=== PATIENT | male | born 2005 | race Caucasian/White ===

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

== ENCOUNTER 2024-03-12 11:11 | Inpatient (IN) | payer OTHER ==
[~2024-03-12] VITALS: Ht 175.3 cm; Wt 54.7 kg
[2024-03-12] VITALS (19 sets, daily range): BP systolic 112–137; BP diastolic 40–74; PULSE 74–89; RESP 16–28; TEMP 98–98.6; O2SAT 94–99
[~2024-03-12 11:11] MED LIST: ONDA-243 PO
[2024-03-12 11:32] LABS: BILIRUBIN,URINE MODERATE (Neg); CLARITY,URINE CLEAR (Clear); GLUCOSE, URINE NEGATIVE (Neg); KETONES,URINE 40 mg/dl (Neg); LEUKOCYTE ESTERASE ,URINE NEGATIVE (Neg); NITRITES, URINE NEGATIVE (Neg); OCCULT BLOOD,URINE NEGATIVE (Neg); PH,URINE 6.5 (4.8-8.0); PROTEIN,URINE 30 mg/dl (Neg)
[2024-03-12 11:35] LABS: UA COLLECTION TYPE CLN CATCH MIDSTREAM
[2024-03-12 11:36] LABS: COLOR,URINE DARK YELLOW (Yellow)
[2024-03-12 11:46] LABS: BACTERIA,URINE FEW /HPF (Neg); FINE GRANULAR CAST 0-3 /LPF (NEGATIVE); MUCUS STRANDS MANY /LPF (Neg); RBC,URINE 0-2 /HPF (0-2); SQUAMOUS EPITHELIAL CELL,UR NONE SEEN /LPF (FEW); WBC,URINE 0-4 /HPF (0-4)
[2024-03-12 11:55] LABS: BASOPHILS % (AUTO) 0.2 % (0-1); EOSINOPHILS % (AUTO) 0.1 % (0-6); HEMOGLOBIN 16.4 g/dl (14.0-17.9); LYMPHOCYTES % (AUTO) 6.3 % (21-51); MEAN CORPUSCULAR HEMOGLOBIN 31.6 PG (27.0-31.0); MEAN CORPUSCULAR HGB CONC 34.3 g/dL (33.0-36.5); MEAN CORPUSCULAR VOLUME 92.1 FL (78-98); MEAN PLATELET VOLUME 8.1 FL (7.4-10.4); MONOCYTES # (AUTO) 1.1 X10'3 (0-0.9); NEUTROPHILS # (AUTO) 13.1 X10'3 (1.8-7.7); NEUTROPHILS % (AUTO) 86.4 % (42-75); PLATELET COUNT 220 X10'3 (140-440); RED BLOOD COUNT 5.21 X10'6 (4.70-6.10); WHITE BLOOD COUNT 15.1 X10'3 (4.5-11.0)
[2024-03-12 12:13] LABS: ALANINE AMINOTRANSFERASE 19 U/L (12-78); ALBUMIN 4.5 G/DL (3.4-5.0); ALBUMIN/GLOBULIN RATIO 1.3 (1.1-1.5); ALKALINE PHOSPHATASE 120 IU/L (20-180); ANION GAP 9 (8-16); ASPARTATE AMINO TRANSFERASE 20 U/L (10-37); BILIRUBIN,TOTAL 0.9 MG/DL (0.1-1.0); BLOOD UREA NITROGEN 11 MG/DL (7-18); BUN/CREATININE RATIO 11.5 (10.0-20.0); CALCIUM 9.5 MG/DL (8.5-10.1); CHLORIDE 101 MMOL/L (99-107); CREATININE 0.96 MG/DL (0.60-1.10); GLUCOSE 107 MG/DL (70-104); LIPASE 22 U/L (16-77); POTASSIUM 4.2 MMOL/L (3.5-5.1); SODIUM 137 MMOL/L (135-145); TOTAL CARBON DIOXIDE 27.2 MMOL/L (24-32); TOTAL PROTEIN 8.1 G/DL (6.4-8.2); eCRCL 95 ML/MIN; eGFR > 90 ML/MIN
[2024-03-12] MEDS: normal saline 1000ML IV soln IVB ONE (12:35)
[2024-03-12] MEDS: diphenhydrAMINE 50 mg/ml inj IV ONE (12:36)
[2024-03-12] MEDS: proCHLORperazine 10 MG/2 ml inj IV ONE (12:36)
[2024-03-12] MEDS: morphine 4 MG/ML inj SYRINge IV ONE (12:41)
[2024-03-12] MEDS: normal saline 1000ml 1,000 ML IV ONE (13:16)
[2024-03-12] MEDS ORDERED: morphine 4 MG/ML inj SYRINge IV ONE (13:45)
[2024-03-12] MEDS ORDERED: iohexol 300mg/ml 100ml inj. ONE (13:49)
[2024-03-12] MEDS: ondansetron/PF 4mg/2ml inj IV ONE (14:11)
[2024-03-12] MEDS: HYDROmorphone inj. 0.5 MG/0.5 ML DISP.SYRIN IV ONE (14:12)
[2024-03-12] MEDS: piperacillin/tazo 4.5gm/100ml 100 ML IV STA (15:08)
[2024-03-12] MEDS ORDERED: meperidine/PF 25mg/ml syringe IV PRN ×2 (15:10)
[2024-03-12] MEDS ORDERED: morphine 4 MG/ML inj SYRINge IV PRN (15:10)
[2024-03-12] MEDS ORDERED: ondansetron/PF 4mg/2ml inj IV PRN ×2 (15:10→15:55)
[2024-03-12] MEDS ORDERED: morphine 2 MG/ML inj. syringe IV PRN (15:10)
[2024-03-12] MEDS ORDERED: labetalol 20mg/4ml (5mg/ml) syringe IV PRN (15:10)
[2024-03-12] MEDS ORDERED: propofol inj 20 ML IV ONE (15:14)
[2024-03-12] MEDS ORDERED: dexamethasone sod phosphate 4mg/ml inj. ONE (15:14)
[2024-03-12] MEDS ORDERED: ondansetron/PF 4mg/2ml inj ONE (15:14)
[2024-03-12] MEDS ORDERED: rocuronium 10mg/ml inj IV ONE (15:14)
[2024-03-12] MEDS ORDERED: LIDOcaine 2% (20mg/ml) 5ml vial ONE (15:14)
[2024-03-12] MEDS ORDERED: glycopyrrolate 0.2mg/ml inj ONE (15:15)
[2024-03-12] MEDS ORDERED: neostigmine methylsulfate 1 MG/ML 10ml vial ONE (15:15)
[2024-03-12] MEDS ORDERED: BUPIVAcaine 2.5mg/ml inj 50ml vial (contains preservative) ONE (15:52)
[2024-03-12] MEDS ORDERED: magnesium sulf-water 4G/100mL 100 ML IV PRN (15:55)
[2024-03-12] MEDS ORDERED: potassium Cl 40MEQ/1/2NS 520ml 520 ML IV PRN (15:55)
[2024-03-12] MEDS ORDERED: potassium Cl 20 mEq SR tablet PO PRN ×2 (15:55)
[2024-03-12] MEDS ORDERED: acetaminophen 325mg tablet PO PRN (15:55)
[2024-03-12] MEDS ORDERED: magnesium sulf-water 2g/50mL 50 ML IV PRN (15:55)
[2024-03-12] MEDS ORDERED: mag hydrox/Alum hydrox/simeth 30ml oral suspension PO PRN (15:55)
[2024-03-12] MEDS ORDERED: sevoflurane 250ml liquid IH ONE (16:05)
[2024-03-12] MEDS ORDERED: meperidine/PF 50mg/ml syringe ONE (16:17)
[2024-03-12] MEDS ORDERED: midazolam 1 mg/ML 2ml injection ONE (16:17)
[2024-03-12] MEDS ORDERED: acetaminophen 1,000mg/100ml IV 100 ML IV ONE (16:28)
[2024-03-12] MEDS: BUPIVAcaine 2.5mg/ml inj 50ml vial (contains preservative) SQ ONE (16:39)
[2024-03-12] MEDS: normal saline 1000ml 1,000 ML IV SCH (19:07)
[2024-03-12] MEDS: ringers solution, lacted 1,000 ML IV SCH (19:08)
[2024-03-12] MEDS: piperacillin/tazo 4.5gm/100ml 100 ML IV SCH (19:09)
[2024-03-12] MEDS: docusate sod 100mg capsule PO SCH (19:13)
[2024-03-12] MEDS: HYDROmorphone inj. 0.5 MG/0.5 ML DISP.SYRIN IV PRN (19:15)
[2024-03-12] MEDS: K and/or MAG REPLACEMENT MC SCH (20:00)
[2024-03-13 02:00] VITALS: BP 113/57; PULSE 80; RESP 18; TEMP 98.8; O2SAT 94
[2024-03-13] MEDS ORDERED: HYDROmorphone inj. 0.5 MG/0.5 ML DISP.SYRIN IV PRN (05:57)
[2024-03-13] MEDS: HYDROmorphone/PF 0.2 MG/ML SYRINGE IV PRN (06:01)
[2024-03-13 06:07] LABS: BASOPHILS # (AUTO) 0.1 X10'3 (0-0.2); BASOPHILS % (AUTO) 0.8 % (0-1); EOSINOPHILS # (AUTO) 0.4 X10'3 (0-0.9); HEMATOCRIT 27.7 % (42.0-52.0); HEMOGLOBIN 8.8 g/dl (14.0-17.9); LYMPHOCYTES # (AUTO) 1.2 X10'3 (1.1-4.8); LYMPHOCYTES % (AUTO) 14.2 % (21-51); MEAN CORPUSCULAR HGB CONC 31.9 g/dL (33.0-36.5); MEAN CORPUSCULAR VOLUME 97.3 FL (78-98); MEAN PLATELET VOLUME 10.1 FL (7.4-10.4); MONOCYTES # (AUTO) 0.7 X10'3 (0-0.9); NEUTROPHILS # (AUTO) 5.9 X10'3 (1.8-7.7); PLATELET COUNT 256 X10'3 (140-440); RED BLOOD COUNT 2.84 X10'6 (4.70-6.10); RED CELL DISTRIBUTION WIDTH 18.4 % (11.5-14.5); WHITE BLOOD COUNT 8.2 X10'3 (4.5-11.0)
[2024-03-13 06:28] LABS: ALANINE AMINOTRANSFERASE 12 U/L (12-78); ALBUMIN 2.2 G/DL (3.4-5.0); ALBUMIN/GLOBULIN RATIO 0.8 (1.1-1.5); ALKALINE PHOSPHATASE 59 IU/L (20-180); ANION GAP 4 (8-16); ASPARTATE AMINO TRANSFERASE 8 U/L (10-37); BILIRUBIN,TOTAL 0.7 MG/DL (0.1-1.0); BLOOD UREA NITROGEN 8 MG/DL (7-18); BUN/CREATININE RATIO 9.3 (10.0-20.0); CALCIUM 7.9 MG/DL (8.5-10.1); CHLORIDE 108 MMOL/L (99-107); CREATININE 0.86 MG/DL (0.60-1.10); GLUCOSE 108 MG/DL (70-104); MAGNESIUM 1.7 MG/DL (1.5-2.4); POTASSIUM 3.9 MMOL/L (3.5-5.1); SODIUM 139 MMOL/L (135-145); TOTAL CARBON DIOXIDE 26.6 MMOL/L (24-32); TOTAL PROTEIN 4.9 G/DL (6.4-8.2); eCRCL 106 ML/MIN; eGFR > 90 ML/MIN
[2024-03-13 10:00] VITALS: BP 119/46; PULSE 63; RESP 18; TEMP 98.3; O2SAT 97
[2024-03-13] MEDS: HYDROmorphone 1 mg/ml syringe IV PRN (10:32)
[2024-03-13] MEDS ORDERED: HYDR-3972 PO (11:04)
[2024-03-13 12:01] LABS: HEMATOCRIT 36.6 % (42.0-52.0); HEMOGLOBIN 12.3 g/dl (14.0-17.9); MEAN CORPUSCULAR HEMOGLOBIN 31.3 PG (27.0-31.0); MEAN CORPUSCULAR HGB CONC 33.6 g/dL (33.0-36.5); MEAN CORPUSCULAR VOLUME 93.1 FL (78-98); MEAN PLATELET VOLUME 8.4 FL (7.4-10.4); PLATELET COUNT 174 X10'3 (140-440); RED BLOOD COUNT 3.94 X10'6 (4.70-6.10); RED CELL DISTRIBUTION WIDTH 13.4 % (11.5-14.5); WHITE BLOOD COUNT 18.1 X10'3 (4.5-11.0)
[2024-03-13] MEDS ORDERED: HYDROcodone/acetaminophen 5mg/325mg tablet PO PRN (16:15)
[2024-03-13] MEDS: HYDROcodone/acetaminophen 10/325mg tab PO PRN (16:48)
[2024-03-13 18:00] VITALS: BP 131/61; PULSE 57; RESP 16; TEMP 98.1; O2SAT 98
[2024-03-13 22:00] VITALS: BP 114/51; PULSE 59; RESP 18; TEMP 98.1; O2SAT 97
[2024-03-14 07:54] LABS: BASOPHILS % (AUTO) 0.2 % (0-1); EOSINOPHILS % (AUTO) 0.4 % (0-6); HEMATOCRIT 36.9 % (42.0-52.0); HEMOGLOBIN 12.5 g/dl (14.0-17.9); LYMPHOCYTES # (AUTO) 1.3 X10'3 (1.1-4.8); LYMPHOCYTES % (AUTO) 14.7 % (21-51); MEAN CORPUSCULAR HEMOGLOBIN 31.6 PG (27.0-31.0); MEAN CORPUSCULAR HGB CONC 33.8 g/dL (33.0-36.5); MEAN CORPUSCULAR VOLUME 93.7 FL (78-98); MEAN PLATELET VOLUME 8.5 FL (7.4-10.4); MONOCYTES # (AUTO) 0.9 X10'3 (0-0.9); NEUTROPHILS # (AUTO) 6.8 X10'3 (1.8-7.7); NEUTROPHILS % (AUTO) 74.7 % (42-75); PLATELET COUNT 176 X10'3 (140-440); RED BLOOD COUNT 3.94 X10'6 (4.70-6.10); RED CELL DISTRIBUTION WIDTH 13.5 % (11.5-14.5); WHITE BLOOD COUNT 9.1 X10'3 (4.5-11.0)
[2024-03-14 08:00] VITALS: RESP 18; O2SAT 98
[2024-03-14 08:12] LABS: ALANINE AMINOTRANSFERASE 12 U/L (12-78); ALBUMIN 2.8 G/DL (3.4-5.0); ALBUMIN/GLOBULIN RATIO 0.9 (1.1-1.5); ALKALINE PHOSPHATASE 51 IU/L (20-180); ANION GAP 4 (8-16); ASPARTATE AMINO TRANSFERASE 17 U/L (10-37); BILIRUBIN,TOTAL 0.5 MG/DL (0.1-1.0); BLOOD UREA NITROGEN 9 MG/DL (7-18); BUN/CREATININE RATIO 8.7 (10.0-20.0); CALCIUM 8.5 MG/DL (8.5-10.1); CHLORIDE 103 MMOL/L (99-107); CREATININE 1.04 MG/DL (0.60-1.10); GLUCOSE 88 MG/DL (70-104); MAGNESIUM 1.9 MG/DL (1.5-2.4); POTASSIUM 3.7 MMOL/L (3.5-5.1); SODIUM 137 MMOL/L (135-145); TOTAL CARBON DIOXIDE 30.3 MMOL/L (24-32); eCRCL 88 ML/MIN; eGFR > 90 ML/MIN
[2024-03-14] MEDS ORDERED: AMOX-580 PO (10:58)
[2024-03-14 13:23] VITALS: RESP 16
== END 2024-03-14 15:34 | disposition home or self-care (01) | DRG 854 ==
LOC: ER 11:11 → ED HOLD 16:00 → ORTHO 4S 18:55
PROVIDERS: ADMIT Family Medicine; ATTEND Family Medicine
PROC: 0DTJ4ZZ Resection of Appendix, Percutaneous Endoscopic Approach (ICD-10-PCS; principal; 2024-03-13)
DX: A41.9 Sepsis, unspecified organism (principal); K35.30 Acute appendicitis with localized peritonitis, without perforation or gangrene; D64.9 Anemia, unspecified
CPT/HCPCS: 96365; 99285; Z7506; 36415; 80053; 81001; 83605; 83690; 83735; 85025; 85027; 87040; 87081; A4215; A4618; A7000; G0378; J0131; J0780; J1100; J1171; J1200; J2175; J2250; J2270; J2405; J2543; J2704; J2710; J3490; J7030; J7120; Q9967